=== PATIENT | male | born 1970 | race Caucasian/White ===

== ENCOUNTER 2016-10-05 08:35 | Inpatient (IN) | payer OTHER ==
[~2016-10-05] VITALS: Ht 165.1 cm; Wt 65.8 kg
--- NOTE | 2016-10-05 08:50 | NUR ---
Transporter was able to provide the telephone number of the sending facility ([phone] ), spoke with Ginger who stated the name of the facility is [facility] but was not able to provide much information about the patient. She stated pt was sent for n/v and has NKDA. She was unable to provide any history or medication information about the pt.
[2016-10-05] MEDS ORDERED: ONDANSETRON 4 MG/2 ML VIAL IV ONE (09:30)
[2016-10-05] MEDS ORDERED: IV NORMAL SALINE 1000 ML BAG IV ONE (09:30)
--- NOTE | 2016-10-05 09:41 | NUR ---
PT IS IN ROOM #2A. DR RUTH EVALUATED THE PT.
[2016-10-05 09:43] LABS: BASOPHILS # (AUTO) 0.1 K/uL (0.0-8.0); BASOPHILS % (AUTO) 0.7 % (0.0-2.0); EOSINOPHILS # (AUTO) 0.1 K/uL (0.0-0.7); EOSINOPHILS % (AUTO) 1.4 % (0.0-7.0); HEMATOCRIT 43.7 % (40-50); HEMOGLOBIN 14.1 G/DL (14.0-18.0); LYMPHOCYTES # (AUTO) 2.5 K/UL (0.8-4.8); LYMPHOCYTES % (AUTO) 31.6 % (20.5-51.5); MEAN CORPUSCULAR HEMOGLOBIN 29.7 UUG (27.0-31.0); MEAN CORPUSCULAR HGB CONC 32 g/dL (32.0-37.0); MEAN CORPUSCULAR VOLUME 92.1 FL (82.0-92.0); MONOCYTES # (AUTO) 0.4 K/UL (0.1-1.30); MONOCYTES % (AUTO) 5.5 % (0.0-11.0); NEUTROPHILS # (AUTO) 4.7 K/UL (1.8-8.9); NEUTROPHILS % (AUTO) 60.8 % (38.5-71.5); PLATELET COUNT (AUTO) 248 K/UL (150-450); RED BLOOD CELL COUNT(AUTO) 4.75 MIL/UL (4.7-6.1); WHITE BLOOD COUNT (AUTO) 7.8 K/UL (4.0-11.2)
[2016-10-05 09:55] LABS: CREATININE 1.3 mg/dL (0.6-1.3); POTASSIUM 3.8 mmol/L (3.5-5.1)
--- NOTE | 2016-10-05 10:00 | NUR ---
Ginger from sending facility arrived, pt's record updated accordingly with information provided.
[2016-10-05 10:01] LABS: BILIRUBIN,DIRECT 0.2 mg/dL (0.0-0.2); BILIRUBIN,TOTAL 0.6 mg/dL (0.2-1.0)
--- NOTE | 2016-10-05 10:10 | NUR ---
CALLED FOR PICC LINE
[2016-10-05] MEDS ORDERED: MIRT15TA7 PO (10:21)
[2016-10-05] MEDS ORDERED: BENA20TA2 PO (10:21)
[2016-10-05] MEDS ORDERED: POLY255P2 PO (10:21)
[2016-10-05] MEDS ORDERED: LEVE500T20 PO (10:21)
[2016-10-05] MEDS ORDERED: SENN-167 PO (10:21)
[2016-10-05] MEDS ORDERED: ONDA4TAB5 PO (10:21)
[2016-10-05] MEDS ORDERED: PERMETHRIN TOP (10:21)
[2016-10-05] MEDS ORDERED: DOCU100C36 PO (10:21)
[2016-10-05] MEDS ORDERED: CLOTRIMAZOLE 1% TOP (10:21)
[2016-10-05] MEDS ORDERED: DONE5TAB34 PO (10:21)
[2016-10-05] MEDS ORDERED: ACET-2154 PO (10:21)
[2016-10-05] MEDS ORDERED: SILVADENE (10:21)
[2016-10-05] MEDS ORDERED: DIPH25CA83 PO (10:21)
[2016-10-05] MEDS ORDERED: TRAM50TA2 PO (10:21)
[2016-10-05] MEDS ORDERED: ATOR80TA PO (10:21)
[2016-10-05] MEDS ORDERED: AMLO10TA2 PO (10:21)
[2016-10-05] MEDS ORDERED: ONDANSETRON 4 MG/2 ML VIAL ONE (11:36)
[2016-10-05] MEDS ORDERED: DOXYCYCLINE HYCLATE IV 200 MG in IV DEXTROSE 5% 250 ML IV ONE (11:45)
[2016-10-05] MEDS ORDERED: CEFTRIAXONE 1 G in IV DEXTROSE 5% 50 ML IV ONE (11:45)
[2016-10-05 12:03] LABS: *BLOOD, URINE NEGATIVE (NEGATIVE); *CLARITY,URINE CLOUDY (CLEAR); *COLOR,URINE DARK YELLOW (YELLOW); *KETONES,URINE TRACE (NEGATIVE); *PROTEIN,URINE 1+ (NEGATIVE); LEUKOCYTE ESTERASE ,URINE 1+ (NEGATIVE); NITRITE, URINE NEGATIVE (NEGATIVE); UGLUCOSE NEGATIVE (NEGATIVE)
[2016-10-05 12:13] LABS: *BILIRUBIN,URIN NEGATIVE (NEGATIVE)
[2016-10-05 12:21] LABS: CALCIUM OXALATE CRYSTALS,UR MODERATE /HPF (NONE SEEN)
[2016-10-05] MEDS ORDERED: DOXYCYCLINE HYCLATE 100 MG INJ IV ONE (12:21)
[2016-10-05] MEDS ORDERED: CEFTRIAXONE 1 G VIAL ONE (12:21)
[2016-10-05 12:22] LABS: RBC,URINE 0-3 /HPF (0-3)
[2016-10-05 12:23] LABS: BACTERIA,URINE MODERATE /HPF (NONE SEEN); SQUAMOUS EPITHELIAL CELL,UR FEW /HPF (NONE SEEN); WBC,URINE 80-100 /HPF (0-3)
[2016-10-05] MEDS ORDERED: ACETAMINOPHEN 325 MG TABLET PO PRN (13:15)
[2016-10-05] MEDS ORDERED: MORPHINE SULFATE 2 MG/1 ML DISP.SYRIN IV PRN (13:15)
--- NOTE | 2016-10-05 13:29 | NUR ---
REPORT WAS GIVEN TO RN M/S. PT WAS TRANSFERED TO M/S ROOM #215.
[2016-10-05] MEDS ORDERED: MAGNESIUM HYDROXIDE 30 ML LIQUID UDC PO ONE (13:30)
[2016-10-05] MEDS ORDERED: METRONIDAZOLE 500 MG/NS 100 ML PIGGYBACK IV ONE (13:45)
[2016-10-05] MEDS ORDERED: METRONIDAZOLE 500 MG/NS 100ML 100 ML IV ONE (13:58)
[2016-10-05] MEDS ORDERED: DEXTROSE 50% 50 ML DISP.SYRIN IV PRN (14:00)
[2016-10-05] MEDS ORDERED: INSULIN REGULAR, HUMAN 300 UNIT/3 ML VIAL SQ PRN (14:00)
[2016-10-05 14:30] VITALS: BP 98/92
[2016-10-05] MEDS ORDERED: MORPHINE SULFATE 4 MG/1 ML DISP.SYRIN IV PRN (14:30)
[2016-10-05] MEDS ORDERED: BISACODYL 5 MG TABLET.DR PO PRN (14:30)
[2016-10-05] MEDS: predniSONE 10 MG TABLET PO SCH (15:36)
[2016-10-05] MEDS: BLOOD SUGAR DIAGNOSTIC 1 EACH STRIP VI SCH ×2 (15:44→20:09)
[2016-10-05] MEDS: IV D5 1/2 NS 1000 ML 1,000 ML IV PRN (16:36)
--- NOTE | 2016-10-05 16:38 | NUR ---
environmental field professional's phone number is not working, the environmental field professional's phone number is [phone]. Advised the sister, sister provided the phone number of pharmacy [phone], per pharmacist "Keppra 30ml q12h", but unable to fax over the paperwork on keppra dose, pharmacist raftered to the hospice of the patient. Per hospice "will fax over". Awaiting response.
[2016-10-05] MEDS: TRAMADOL HCL 50 MG TABLET PO SCH (16:57)
--- NOTE | 2016-10-05 16:59 | NUR ---
Admitting note Patient admitted to [facility] floor, Diagnosis: UTI/ Rectal Pain, Proctitis. patient is alert and oriented to person, knows he is in a hospital, disoriented to time and situation,patient is calm and cooperative able to give some history, forgetful of other facts. patient has a history of stroke with paralysis that he suffered in [facility] Nov 2015. Patient was then assisted by family transferred back to [place]. patient with paralysis, minimal movement noted of left arm. triple lumen PICC line on right upper arm. patient has history of vascular dementia as consequence of Stroke, patient with sister at [facility] to assist with history as patient is poor historian. Sister name is Shanna Cole [phone], patient currently resides at some sort of facility with hospice following him. patient is skin is intact with some redness noted of sacrun/buttocks, and left heel, blanchable. skin otherwise is intact. patient compliant with meds at this time, Remains NPO except for meds per MD orders. questions and concerns addressed to patient and family, frequent rounding.
[2016-10-05] MEDS: DOCUSATE SODIUM 100 MG CAPSULE PO SCH (17:14)
[2016-10-05 19:00] VITALS: BP 92/58
--- NOTE | 2016-10-05 19:15 | NUR ---
pt is laying in bed comfortably. no s/s of respiratory distress noted. no pain noted. all safety needs are met.
[2016-10-05] MEDS: ATORVASTATIN 40 MG TABLET PO SCH (20:08)
[2016-10-05] MEDS: DONEPEZIL 5 MG TABLET PO SCH (20:08)
[2016-10-05] MEDS: DOXYCYCLINE HYCLATE IV 100 MG in IV DEXTROSE 5% 100 ML IV SCH (20:08)
[2016-10-05] MEDS: LEVETIRACETAM 500 MG TABLET PO SCH (20:08)
[2016-10-05] MEDS: MIRTAZAPINE 15 MG TABLET PO SCH (20:09)
[2016-10-05] MEDS: SENNOSIDES 1 TABLET PO SCH (20:09)
[2016-10-05] MEDS ORDERED: Medication Not On Formulary EA (Atorvastatin Calcium (Lipitor) 80 MG) PO SCH (21:00)
[2016-10-06 04:00] VITALS: BP 101/72
[2016-10-06] MEDS: IV D5 1/2 NS 1000 ML 1,000 ML IV PRN ×2 (04:55→17:11)
--- NOTE | 2016-10-06 06:00 | NUR ---
Patient slept well, in no acute distress. Accuchecks as ordered. IVF running, no infiltration noted. Patient kept clean/dry, repositioned Q2H for comfort. Safety measures in place, call light within reach, bed alarm on. Will continue to monitor.
--- NOTE | 2016-10-06 06:10 | NUR ---
PT'S BS LEVEL READING AT 65. PT IS ALERT, RESPONSIVE, IN NO ACUTE DISTRESS, NO N/V, NO S/S OF DIAPHORESIS. PT IS NPO, ADMINISTERED D50%. WILL REASSESS. PELT SALTER AWARE.
[2016-10-06] MEDS: PANTOPRAZOLE SODIUM 40 MG TABLET.DR PO SCH (06:25)
[2016-10-06 06:32] LABS: BASOPHILS # (AUTO) 0.1 K/uL (0.0-8.0); BASOPHILS % (AUTO) 0.8 % (0.0-2.0); EOSINOPHILS # (AUTO) 0.1 K/uL (0.0-0.7); EOSINOPHILS % (AUTO) 1.5 % (0.0-7.0); HEMATOCRIT 33.1 % (40-50); HEMOGLOBIN 10.7 G/DL (14.0-18.0); LYMPHOCYTES # (AUTO) 2.7 K/UL (0.8-4.8); LYMPHOCYTES % (AUTO) 28.3 % (20.5-51.5); MEAN CORPUSCULAR HEMOGLOBIN 29.6 UUG (27.0-31.0); MEAN CORPUSCULAR HGB CONC 32 g/dL (32.0-37.0); MEAN CORPUSCULAR VOLUME 91.2 FL (82.0-92.0); MONOCYTES # (AUTO) 0.6 K/UL (0.1-1.30); MONOCYTES % (AUTO) 6.6 % (0.0-11.0); NEUTROPHILS # (AUTO) 5.9 K/UL (1.8-8.9); NEUTROPHILS % (AUTO) 62.8 % (38.5-71.5); PLATELET COUNT (AUTO) 188 K/UL (150-450); RED BLOOD CELL COUNT(AUTO) 3.63 MIL/UL (4.7-6.1); WHITE BLOOD COUNT (AUTO) 9.4 K/UL (4.0-11.2)
[2016-10-06 06:51] LABS: BILIRUBIN,TOTAL 0.4 mg/dL (0.2-1.0); CREATININE 0.9 mg/dL (0.6-1.3); MAGNESIUM 1.7 mg/dL (1.8-2.4); PHOSPHOROUS 2.6 mg/dL (2.5-4.9); POTASSIUM 3.4 mmol/L (3.5-5.1); TOTAL PROTEIN, SERUM 5.8 g/dL (6.4-8.2)
[2016-10-06] MEDS: BLOOD SUGAR DIAGNOSTIC 1 EACH STRIP VI SCH ×2 (06:56→17:34)
[2016-10-06 07:05] LABS: THYROID STIMULATING HORMONE 0.448 mIU/mL (0.358-3.740)
[2016-10-06] MEDS: TRAMADOL HCL 50 MG TABLET PO SCH ×2 (08:06→16:07)
[2016-10-06] MEDS: MIRALAX 17 GM POWD.PACK PO SCH (08:47)
[2016-10-06] MEDS: DOCUSATE SODIUM 100 MG CAPSULE PO SCH ×2 (08:47→17:11)
[2016-10-06] MEDS: LEVETIRACETAM 500 MG TABLET PO SCH ×2 (08:47→20:23)
[2016-10-06] MEDS: predniSONE 10 MG TABLET PO SCH (08:47)
[2016-10-06] MEDS ORDERED: PANTOPRAZOLE SODIUM 40 MG TABLET.DR PO SCH (09:00)
[2016-10-06] MEDS: DOXYCYCLINE HYCLATE IV 100 MG in IV DEXTROSE 5% 100 ML IV SCH ×2 (09:01→20:25)
[2016-10-06 09:44] LABS: IRON, SERUM 89 ug/dL (50-175)
[2016-10-06] MEDS ORDERED: POTASSIUM CHLORIDE 20 MEQ TAB.PRT.SR PO ONE (10:15)
[2016-10-06] MEDS ORDERED: MAGNESIUM SULFATE/D5W 100 ML IV SCH (10:15)
[2016-10-06] MEDS ORDERED: LACTULOSE 20 G/30 ML LIQUID UDC PO ONE (10:30)
[2016-10-06] MEDS: CEFTRIAXONE 1 G in IV DEXTROSE 5% 50 ML IV SCH (11:16)
[2016-10-06 11:55] VITALS: BP 108/69
[2016-10-06 15:44] VITALS: BP 104/82
[2016-10-06 19:00] VITALS: BP 114/80
--- NOTE | 2016-10-06 19:30 | NUR ---
NO CHANGES NOTED. ALL SAFETY NEEDS ARE MET.
[2016-10-06] MEDS: ATORVASTATIN 40 MG TABLET PO SCH (20:23)
[2016-10-06] MEDS: MIRTAZAPINE 15 MG TABLET PO SCH (20:23)
[2016-10-06] MEDS: SENNOSIDES 1 TABLET PO SCH (20:23)
[2016-10-06] MEDS: DONEPEZIL 5 MG TABLET PO SCH (20:23)
[2016-10-07] VITALS: BP 120/65
[2016-10-07 04:12] VITALS: BP 102/74
[2016-10-07] MEDS: IV D5 1/2 NS 1000 ML 1,000 ML IV PRN ×2 (05:34→16:04)
--- NOTE | 2016-10-07 06:00 | NUR ---
PT SLEPT WELL, IN NO ACUTE DISTRESS, KEPT CLEAN AND DRY, REPOSITIONED Q2H FOR COMFORT. IVF RUNNING, NO INFILTRATION NOTED. CALL LIGHT WITHIN REACH, BED ALARM ON, WILL CONTINUE TO MONITOR. Addendum: 10/07/16 at 0637 by NASH WALKER RN PT IS ON TELE - SINUS WADE, PT IS RESPONSIVE, NO C/O OF CHEST PAIN, NO SOB, NO ACUTE DISTRESS.
[2016-10-07] MEDS: PANTOPRAZOLE SODIUM 40 MG TABLET.DR PO SCH (06:25)
[2016-10-07 07:41] LABS: BASOPHILS % (AUTO) 0.5 % (0.0-2.0); EOSINOPHILS # (AUTO) 0.2 K/uL (0.0-0.7); EOSINOPHILS % (AUTO) 2.6 % (0.0-7.0); HEMATOCRIT 32.2 % (40-50); LYMPHOCYTES # (AUTO) 2.9 K/UL (0.8-4.8); LYMPHOCYTES % (AUTO) 33.2 % (20.5-51.5); MEAN CORPUSCULAR HEMOGLOBIN 31.1 UUG (27.0-31.0); MEAN CORPUSCULAR HGB CONC 34 g/dL (32.0-37.0); MEAN CORPUSCULAR VOLUME 91.3 FL (82.0-92.0); MONOCYTES # (AUTO) 0.5 K/UL (0.1-1.30); MONOCYTES % (AUTO) 5.4 % (0.0-11.0); NEUTROPHILS % (AUTO) 58.3 % (38.5-71.5); PLATELET COUNT (AUTO) 208 K/UL (150-450); RED BLOOD CELL COUNT(AUTO) 3.53 MIL/UL (4.7-6.1); WHITE BLOOD COUNT (AUTO) 8.6 K/UL (4.0-11.2)
[2016-10-07] MEDS: BLOOD SUGAR DIAGNOSTIC 1 EACH STRIP VI SCH ×2 (07:49→17:22)
[2016-10-07 07:53] LABS: BILIRUBIN,TOTAL 0.2 mg/dL (0.2-1.0); CREATININE 0.8 mg/dL (0.6-1.3); MAGNESIUM 1.6 mg/dL (1.8-2.4); PHOSPHOROUS 1.9 mg/dL (2.5-4.9); POTASSIUM 3.3 mmol/L (3.5-5.1); TOTAL PROTEIN, SERUM 5.1 g/dL (6.4-8.2)
--- NOTE | 2016-10-07 08:00 | NUR ---
AWAKE ALERT COOPERATE WELL NO PAIN OR SOB ON ASPIRATION AND FALL PRECAUTION BED ALARM ON AND CALL LIGHT WITHIN REACH AND INSTRUCTION TO CALL WHEN NEED
[2016-10-07] MEDS: DOCUSATE SODIUM 100 MG CAPSULE PO SCH ×2 (09:39→16:56)
[2016-10-07] MEDS: DOXYCYCLINE HYCLATE 100 MG TABLET PO SCH ×2 (09:40→20:14)
[2016-10-07] MEDS: TRAMADOL HCL 50 MG TABLET PO SCH ×2 (09:43→17:22)
[2016-10-07] MEDS: predniSONE 10 MG TABLET PO SCH (09:43)
[2016-10-07] MEDS: MIRALAX 17 GM POWD.PACK PO SCH (09:44)
[2016-10-07] MEDS: LEVETIRACETAM 500 MG TABLET PO SCH ×2 (09:44→20:13)
[2016-10-07] MEDS ORDERED: NEUTRA PHOS PACKET PO ONE (10:00)
[2016-10-07] MEDS ORDERED: MAGNESIUM OXIDE 400 MG TABLET PO ONE (10:00)
[2016-10-07 11:09] VITALS: BP 106/76
[2016-10-07] MEDS: CEFTRIAXONE 1 G in IV DEXTROSE 5% 50 ML IV SCH (11:58)
[2016-10-07] MEDS ORDERED: POTASSIUM CHLORIDE 20 MEQ TAB.PRT.SR PO ONE (13:30)
[2016-10-07 15:06] VITALS: BP 108/79
[2016-10-07] MEDS ORDERED: MINERAL OIL FLEET ENEMA 133 ML BOTTLE RC ONE (16:45)
[2016-10-07 17:00] LABS: *GC NAA Negative (Negative); *TRIC.VAG. NAA Negative (Negative)
--- NOTE | 2016-10-07 17:00 | NUR ---
DR VALDES SEE PATIENT AND ORDER TO GIVE FLEET EMULSION TODAY SEAN
--- NOTE | 2016-10-07 17:30 | NUR ---
SAME CONDITION PAIN UNDER CONTROL NO ACUTE DISTRESS SAFETY MEASURE PROVIDED CALL LEWIS IN REACH
[2016-10-07 19:00] VITALS: BP 110/79
[2016-10-07] MEDS: ATORVASTATIN 40 MG TABLET PO SCH (20:13)
[2016-10-07] MEDS: MIRTAZAPINE 15 MG TABLET PO SCH (20:13)
[2016-10-07] MEDS: SENNOSIDES 1 TABLET PO SCH (20:14)
[2016-10-07] MEDS: DONEPEZIL 5 MG TABLET PO SCH (20:14)
[2016-10-08] MEDS: IV D5 1/2 NS 1000 ML 1,000 ML IV PRN ×3 (01:53→23:16)
[2016-10-08 04:00] VITALS: BP 111/75
--- NOTE | 2016-10-08 05:44 | NUR ---
PT SLEPT INTERMITTENTLY, IN NO ACUTE DISTRESS, NO C/O OF CHEST PAIN, SOB, NAUSEA/VOMITING. IVF INFUSING, NO S/S OF INFILTRATION. REPOSITIONED Q2H FOR COMFORT. PATIENT KEPT CLEAN/DRY/WARM. CALL LIGHT WITHIN REACH, BED ALARM ON. WILL CONTINUE TO MONITOR.
[2016-10-08] MEDS: Z GUARD REMEDY PASTE 57 GM TUBE TOP PRN ×2 (06:18→09:20)
[2016-10-08] MEDS: PANTOPRAZOLE SODIUM 40 MG TABLET.DR PO SCH (06:18)
--- NOTE | 2016-10-08 06:30 | NUR ---
PICC LINE DRESSING CHANGE DONE, TRIPLE LUMEN VALVES REPLACED/CHANGED PER PROTOCOL USING ASEPTIC TECHNIQUE. PICC LINE SITE INTACT, NO S/S OF REDNESS, BLEEDING, DRAINAGE, SWELLING. PATIENT TOLERATED PROCEDURE WELL, NO C/O OF DISCOMFORT, IN NO ACUTE DISTRESS. WILL CONTINUE TO MONITOR.
[2016-10-08 07:19] LABS: BASOPHILS % (AUTO) 0.5 % (0.0-2.0); EOSINOPHILS # (AUTO) 0.2 K/uL (0.0-0.7); EOSINOPHILS % (AUTO) 2.7 % (0.0-7.0); HEMATOCRIT 32.6 % (40-50); LYMPHOCYTES # (AUTO) 2.8 K/UL (0.8-4.8); LYMPHOCYTES % (AUTO) 32.8 % (20.5-51.5); MEAN CORPUSCULAR HEMOGLOBIN 30.8 UUG (27.0-31.0); MEAN CORPUSCULAR HGB CONC 34 g/dL (32.0-37.0); MEAN CORPUSCULAR VOLUME 91.1 FL (82.0-92.0); MONOCYTES # (AUTO) 0.5 K/UL (0.1-1.30); MONOCYTES % (AUTO) 5.8 % (0.0-11.0); NEUTROPHILS # (AUTO) 4.9 K/UL (1.8-8.9); NEUTROPHILS % (AUTO) 58.2 % (38.5-71.5); PLATELET COUNT (AUTO) 192 K/UL (150-450); RED BLOOD CELL COUNT(AUTO) 3.58 MIL/UL (4.7-6.1); WHITE BLOOD COUNT (AUTO) 8.4 K/UL (4.0-11.2)
[2016-10-08 07:56] LABS: BILIRUBIN,TOTAL 0.1 mg/dL (0.2-1.0); CREATININE 0.7 mg/dL (0.6-1.3); MAGNESIUM 1.6 mg/dL (1.8-2.4); PHOSPHOROUS 2.5 mg/dL (2.5-4.9); POTASSIUM 4.1 mmol/L (3.5-5.1); TOTAL PROTEIN, SERUM 5.1 g/dL (6.4-8.2)
--- NOTE | 2016-10-08 08:00 | NUR ---
AWAKE COOPERATE WELL NO SOB OR PAIN ON FALL /ASPIRATION PRECAUTION BED ALAERM ON AND CALL LEWIS IN REACH
[2016-10-08] MEDS: MIRALAX 17 GM POWD.PACK PO SCH (09:18)
[2016-10-08] MEDS: DOCUSATE SODIUM 100 MG CAPSULE PO SCH ×2 (09:18→17:04)
[2016-10-08] MEDS: predniSONE 10 MG TABLET PO SCH (09:18)
[2016-10-08] MEDS: LEVETIRACETAM 500 MG TABLET PO SCH ×2 (09:19→20:10)
[2016-10-08] MEDS: DOXYCYCLINE HYCLATE 100 MG TABLET PO SCH ×2 (09:19→20:10)
[2016-10-08] MEDS: SENNOSIDES 1 TABLET PO SCH ×2 (09:19→20:10)
[2016-10-08] MEDS: TRAMADOL HCL 50 MG TABLET PO SCH ×2 (09:19→17:05)
[2016-10-08] MEDS: BLOOD SUGAR DIAGNOSTIC 1 EACH STRIP VI SCH ×2 (09:24→17:40)
[2016-10-08] MEDS ORDERED: MAGNESIUM OXIDE 400 MG TABLET PO ONE (09:30)
--- NOTE | 2016-10-08 11:00 | NUR ---
LUPIS SEE PATIENT AND PT CONDITION NO BM INFORM NEW ORDER IN CHART
[2016-10-08 11:35] VITALS: BP 138/93
[2016-10-08] MEDS: CEFTRIAXONE 1 G in IV DEXTROSE 5% 50 ML IV SCH (12:14)
[2016-10-08] MEDS ORDERED: MAGNESIUM CITRATE 296 ML BOTTLE PO ONE (12:45)
--- NOTE | 2016-10-08 14:35 | NUR ---
MED PO FOR LAXATIVE GIVEN ORDER REPOSITION Q2 HR AND DIAPER CHANGE
[2016-10-08 15:41] VITALS: BP 113/87
--- NOTE | 2016-10-08 17:00 | NUR ---
STABLE HEMODYNAMIC PAIN UNDER CONTROL SAFETY MEASURE PROVIDED BED ALARM ON AND CALL LIGHT IN REACH NO ACUTE DISTRESS NO BM YET WILL ENC TO DRINK MORE PO FLD AND FINISHED MEDICATION
[2016-10-08] MEDS: MAGNESIUM HYDROXIDE 30 ML LIQUID UDC PO PRN ×2 (17:05→22:32)
--- NOTE | 2016-10-08 18:00 | NUR ---
REPOSITION X A ND CHECK BM DISIMPACT BUT IT STILL TOO HIGH ONLY ABLE TO GET SMALL BM SENT TO LAB ORDER
[2016-10-08 20:00] VITALS: BP 120/87
[2016-10-08] MEDS: DONEPEZIL 5 MG TABLET PO SCH (20:09)
[2016-10-08] MEDS: MIRTAZAPINE 15 MG TABLET PO SCH (20:09)
[2016-10-08] MEDS: ATORVASTATIN 40 MG TABLET PO SCH (20:10)
[2016-10-09 04:49] VITALS: BP 146/100
[2016-10-09] MEDS: PANTOPRAZOLE SODIUM 40 MG TABLET.DR PO SCH (06:30)
--- NOTE | 2016-10-09 06:46 | NUR ---
PT IN BED, RESTING COMFORTABLY. RESP IS EVEN AN UNLABORED. NO SOB. NO ACUTE DISTRESS. IV FLUIDS INFUSING WELL. PICC LINE IS PATENT AND INTACT. PT WITH SMALL BM X1. NO C/O PAIN OR DISCOMFORT AT THIS TIME. CALL LIGHT KEPT WITHIN REACH. WILL CONT TO MONITOR.
[2016-10-09 07:07] LABS: CREATININE 0.7 mg/dL (0.6-1.3); MAGNESIUM 1.8 mg/dL (1.8-2.4); PHOSPHOROUS 2.7 mg/dL (2.5-4.9); POTASSIUM 3.5 mmol/L (3.5-5.1)
[2016-10-09 07:30] LABS: BASOPHILS % (AUTO) 0.4 % (0.0-2.0); EOSINOPHILS # (AUTO) 0.3 K/uL (0.0-0.7); EOSINOPHILS % (AUTO) 3.2 % (0.0-7.0); LYMPHOCYTES # (AUTO) 3.5 K/UL (0.8-4.8); LYMPHOCYTES % (AUTO) 34.6 % (20.5-51.5); MEAN CORPUSCULAR HEMOGLOBIN 30.5 UUG (27.0-31.0); MEAN CORPUSCULAR HGB CONC 33 g/dL (32.0-37.0); MEAN CORPUSCULAR VOLUME 91.8 FL (82.0-92.0); MONOCYTES # (AUTO) 0.7 K/UL (0.1-1.30); MONOCYTES % (AUTO) 7.3 % (0.0-11.0); NEUTROPHILS # (AUTO) 5.7 K/UL (1.8-8.9); NEUTROPHILS % (AUTO) 54.5 % (38.5-71.5); PLATELET COUNT (AUTO) 222 K/UL (150-450); WHITE BLOOD COUNT (AUTO) 10.2 K/UL (4.0-11.2)
[2016-10-09 07:38] LABS: HEMATOCRIT 39.4 % (40-50); HEMOGLOBIN 13.1 G/DL (14.0-18.0)
[2016-10-09] MEDS: DOCUSATE SODIUM 100 MG CAPSULE PO SCH ×2 (08:24→17:15)
[2016-10-09] MEDS: DOXYCYCLINE HYCLATE 100 MG TABLET PO SCH (08:24)
[2016-10-09] MEDS: LEVETIRACETAM 500 MG TABLET PO SCH ×2 (08:24→20:43)
[2016-10-09] MEDS: TRAMADOL HCL 50 MG TABLET PO SCH ×2 (08:25→17:15)
[2016-10-09] MEDS: predniSONE 10 MG TABLET PO SCH (08:25)
[2016-10-09] MEDS: MIRALAX 17 GM POWD.PACK PO SCH (08:25)
[2016-10-09 08:29] LABS: *OCCULT BLOOD STOOL NEGATIVE (NEGATIVE)
[2016-10-09] MEDS: ONDANSETRON 4 MG/2 ML VIAL IV PRN ×2 (08:32→21:00)
--- NOTE | 2016-10-09 08:32 | NUR ---
PATIENT NOTED TO HAVE VOMITED ABOUT 50 ML YELLOWISH BILE LOOKING FLUID PATIENT MEDICATED WITH ZOFRAN ORDERED AND WILL OBSERVE.
--- NOTE | 2016-10-09 11:18 | NUR ---
RESULT RECEIVED FROM [facility] PATIENT IS POSITIVE FOR C DIFF IN THE STOOL CALLED TO LYDIA KEN WITH NEW ORDERS AND NOTED.
[2016-10-09] MEDS: IV D5 1/2 NS 1000 ML 1,000 ML IV PRN (11:39)
[2016-10-09 12:20] VITALS: BP 148/108
[2016-10-09] MEDS ORDERED: MAGNESIUM CITRATE 296 ML BOTTLE PO ONE (13:00)
[2016-10-09] MEDS: VANCOMYCIN FOR PO/GT/NG USE PO SCH ×3 (15:08→23:37)
[2016-10-09 16:42] VITALS: BP 148/98
--- NOTE | 2016-10-09 18:00 | NUR ---
REMAIN ON ISOLATION AND ORAL VANCO ORDERED.
--- NOTE | 2016-10-09 20:04 | NUR ---
pt in bed, sleeping. resp is even and unlabored. no sob, no apparent distress. pt with iv infusing well via r upper arm picc line. pt remains on isolation precautions. call light within reach will cont to monitor.
[2016-10-09] MEDS: ATORVASTATIN 10 MG TABLET PO SCH (20:43)
[2016-10-09] MEDS: SENNOSIDES 1 TABLET PO SCH (20:43)
[2016-10-09] MEDS: MIRTAZAPINE 15 MG TABLET PO SCH (20:43)
[2016-10-09] MEDS: DONEPEZIL 5 MG TABLET PO SCH (20:43)
[2016-10-09] MEDS ORDERED: Z GUARD REMEDY PASTE 57 GM TUBE TOP PRN (21:00)
[2016-10-09] MEDS ORDERED: ATORVASTATIN 40 MG TABLET PO SCH (21:00)
--- NOTE | 2016-10-09 21:05 | NUR ---
PATIENT NOTED TO HAVE VOMITED ABOUT 20ML OF CLEAR YELLOWISH/ GREENISH LOOKING FLUID. ADMINISTERED ZOFRAN ORDERED AND WILL OBSERVE.
[2016-10-09 21:30] VITALS: BP 111/88
[2016-10-09] MEDS: AMOXICILLIN-CLAVUL 500-125MG TABLET PO SCH (23:37)
[2016-10-10] MEDS: IV D5 1/2 NS 1000 ML 1,000 ML IV PRN ×2 (02:14→16:22)
[2016-10-10 05:20] VITALS: BP 127/102
[2016-10-10] MEDS: VANCOMYCIN FOR PO/GT/NG USE PO SCH (06:01)
[2016-10-10] MEDS: PANTOPRAZOLE SODIUM 40 MG TABLET.DR PO SCH (06:01)
[2016-10-10] MEDS: AMOXICILLIN-CLAVUL 500-125MG TABLET PO SCH ×3 (06:01→21:24)
--- NOTE | 2016-10-10 06:39 | NUR ---
PT IN BED, RESP EVEN AN UNLABORED. NO SOB, NO ACUTE DISTRESS. PT REPOSITIONED AND TURNED Q2 HRS. NOTED WITH SMALL BM DURING THE SHIFT. FLUIDS ENCOURAGED, PRUNE JUICE GIVEN. CONTACT PRECAUTIONS MAINTAINED FOR C-DIFF. CALL LIGHT WITH IN REACH. WILL CONT TO MONITOR.
[2016-10-10 06:49] LABS: EOSINOPHILS # (AUTO) 0.1 K/uL (0.0-0.7); HEMATOCRIT 44.7 % (40-50); LYMPHOCYTES # (AUTO) 1.7 K/UL (0.8-4.8); LYMPHOCYTES % (AUTO) 12.9 % (20.5-51.5); MEAN CORPUSCULAR HEMOGLOBIN 30.7 UUG (27.0-31.0); MEAN CORPUSCULAR HGB CONC 34 g/dL (32.0-37.0); MEAN CORPUSCULAR VOLUME 91.4 FL (82.0-92.0); MONOCYTES # (AUTO) 0.9 K/UL (0.1-1.30); MONOCYTES % (AUTO) 6.8 % (0.0-11.0); NEUTROPHILS # (AUTO) 10.7 K/UL (1.8-8.9); NEUTROPHILS % (AUTO) 79.3 % (38.5-71.5); PLATELET COUNT (AUTO) 237 K/UL (150-450); RED BLOOD CELL COUNT(AUTO) 4.89 MIL/UL (4.7-6.1); WHITE BLOOD COUNT (AUTO) 13.4 K/UL (4.0-11.2)
[2016-10-10 07:45] LABS: BILIRUBIN,TOTAL 0.3 mg/dL (0.2-1.0); CREATININE 0.8 mg/dL (0.6-1.3); MAGNESIUM 1.9 mg/dL (1.8-2.4); PHOSPHOROUS 3.3 mg/dL (2.5-4.9); POTASSIUM 3.9 mmol/L (3.5-5.1); TOTAL PROTEIN, SERUM 5.9 g/dL (6.4-8.2)
[2016-10-10] MEDS: predniSONE 10 MG TABLET PO SCH (09:00)
[2016-10-10] MEDS: TRAMADOL HCL 50 MG TABLET PO SCH ×2 (09:13→16:28)
[2016-10-10] MEDS: LEVETIRACETAM 500 MG TABLET PO SCH ×2 (09:13→20:33)
[2016-10-10] MEDS: DOCUSATE SODIUM 100 MG CAPSULE PO SCH ×2 (09:13→16:28)
[2016-10-10] MEDS: MIRALAX 17 GM POWD.PACK PO SCH (09:14)
--- NOTE | 2016-10-10 09:19 | NUR ---
UNABLE TO ADMINISTER PREDNISONE BECAUSE PATIENT REFUSED TO EAT BREAKFAT TODAY.
--- NOTE | 2016-10-10 10:00 | NUR ---
PATIENT SEEN BY THE PHYSICAL THERAPIST AND HE WAS ASSISTED UP ONTO THE COMMODE AND NOTED MEDIUM SIZED BOWEL MOVEMENT AND BACK TO BED AND WILL CONTINUE TO OBSERVE.
--- NOTE | 2016-10-10 10:56 | NUR ---
PATIENT SEEN AND EXAMINED BY DR DICKERSON INFECTIOUS DISEASE WITH NEW ORDERS AND NOTED.
[2016-10-10 12:04] VITALS: BP 138/64
--- NOTE | 2016-10-10 12:50 | NUR ---
PATIENT IS REFUSING TO EAT DESPITE ALL ASSISTANCE AND ENCOURAGEMENTS KEPT ON SAYING WILL EAT LATER.FLUID INTAKE IS OKAY AND ALSO REMAINS ON IVF ORDERED.CONTACT ISOLATION MAINTAINED FOR POSITIVE C DIFF TOXINS IN THE BLOOD MADE COMFORTABLE WITH NO DISTRESS AT THIS TIME.
[2016-10-10] MEDS: METRONIDAZOLE 500 MG TABLET PO SCH ×2 (13:12→21:24)
[2016-10-10 15:01] VITALS: BP 100/74
--- NOTE | 2016-10-10 16:30 | NUR ---
TOOK HIS MEDICATIONS SLEEPING ON AND OFF NO COMPLAINTS AT THIS TIME MAX ASSIST FOR ALL ADL MADE COMFORTABLE.
--- NOTE | 2016-10-10 18:00 | NUR ---
FAMILY AT THE BEDSIDE PATIENT IS AWAKE ALERT WITH NO C/O AT THIS TIME
[2016-10-10 20:00] VITALS: BP 125/76
[2016-10-10] MEDS: DONEPEZIL 5 MG TABLET PO SCH (20:33)
[2016-10-10] MEDS: ATORVASTATIN 10 MG TABLET PO SCH (20:33)
[2016-10-10] MEDS: SENNOSIDES 1 TABLET PO SCH (20:33)
[2016-10-10] MEDS: MIRTAZAPINE 15 MG TABLET PO SCH (20:34)
[2016-10-10] MEDS: Z GUARD REMEDY PASTE 57 GM TUBE TOP SCH (20:35)
[2016-10-11 05:44] VITALS: BP 114/84
[2016-10-11] MEDS: METRONIDAZOLE 500 MG TABLET PO SCH ×3 (05:47→21:17)
[2016-10-11] MEDS: AMOXICILLIN-CLAVUL 500-125MG TABLET PO SCH ×3 (05:47→21:17)
[2016-10-11] MEDS: PANTOPRAZOLE SODIUM 40 MG TABLET.DR PO SCH (06:01)
[2016-10-11] MEDS: IV D5 1/2 NS 1000 ML 1,000 ML IV PRN ×2 (06:47→21:17)
--- NOTE | 2016-10-11 07:08 | NUR ---
RES IN BED, RESTING COMFORTABLY. RESP IS EVEN AND UNLAORED NO SOB. NO ACUTE DISTRESS. RES HAD 2 BM. VSS. CONTACT ISOLATION MAINTAINED FOR C-DIFF. CALL LIGHT WITHIN REACH. WILL CONT TO MONITOR.
[2016-10-11] MEDS: MIRALAX 17 GM POWD.PACK PO SCH (09:00)
[2016-10-11] MEDS: Z GUARD REMEDY PASTE 57 GM TUBE TOP SCH ×2 (09:03→20:53)
[2016-10-11] MEDS: LEVETIRACETAM 500 MG TABLET PO SCH ×2 (09:03→20:52)
[2016-10-11] MEDS: TRAMADOL HCL 50 MG TABLET PO SCH ×2 (09:03→17:08)
[2016-10-11] MEDS: DOCUSATE SODIUM 100 MG CAPSULE PO SCH ×2 (09:03→17:04)
[2016-10-11] MEDS: predniSONE 10 MG TABLET PO SCH (09:03)
[2016-10-11 11:29] VITALS: BP 101/71
[2016-10-11 15:42] VITALS: BP 99/75
[2016-10-11 20:00] VITALS: BP 112/80
--- NOTE | 2016-10-11 20:45 | NUR ---
PT'S ON BED REST COMFORTABLY;HX OF CVA W/LEFT SIDE WEAKNESS.ASSISTED PT FOR PM AND SKIN CARE ON BED;REPOSITION.MEDICATION'S GIVEN TO PT DUE TIME(SEE RECORD);EDUCATED TO PT;HE VERBALIZED UNDERSTANDING AND TOLERATED WELL NOTED.SKIN CARE PER PROTOCOL.CONTINUED MONITORING TO PT.
[2016-10-11] MEDS: DONEPEZIL 5 MG TABLET PO SCH (20:52)
[2016-10-11] MEDS: SENNOSIDES 1 TABLET PO SCH (20:53)
[2016-10-11] MEDS: ATORVASTATIN 10 MG TABLET PO SCH (20:53)
[2016-10-11] MEDS: MIRTAZAPINE 15 MG TABLET PO SCH (20:53)
[2016-10-12 04:42] VITALS: BP 131/94
[2016-10-12] MEDS: AMOXICILLIN-CLAVUL 500-125MG TABLET PO SCH ×3 (05:18→21:00)
[2016-10-12] MEDS: METRONIDAZOLE 500 MG TABLET PO SCH (05:18)
[2016-10-12] MEDS: PANTOPRAZOLE SODIUM 40 MG TABLET.DR PO SCH (06:24)
--- NOTE | 2016-10-12 06:25 | NUR ---
ASSISTED FOR AM;SKIN CARE ON BED,PT'S COOPERATIVE W/ASSISTANCE;STILL FORGETFUL AND STATED THAT"I THINK I'M AT MY APARTMENT";REORIENTATION TO PT.NO DISTRESS NOTED IN THE SHIFT,NO BM WAS SEEN NOTED.
[2016-10-12 06:31] LABS: BASOPHILS # (AUTO) 0.1 K/uL (0.0-8.0); BASOPHILS % (AUTO) 0.6 % (0.0-2.0); EOSINOPHILS # (AUTO) 0.2 K/uL (0.0-0.7); EOSINOPHILS % (AUTO) 2.3 % (0.0-7.0); HEMATOCRIT 36.2 % (40-50); HEMOGLOBIN 12.3 G/DL (14.0-18.0); LYMPHOCYTES # (AUTO) 4.2 K/UL (0.8-4.8); LYMPHOCYTES % (AUTO) 44.4 % (20.5-51.5); MEAN CORPUSCULAR HEMOGLOBIN 31.2 UUG (27.0-31.0); MEAN CORPUSCULAR HGB CONC 34 g/dL (32.0-37.0); MEAN CORPUSCULAR VOLUME 91.8 FL (82.0-92.0); MONOCYTES # (AUTO) 0.8 K/UL (0.1-1.30); MONOCYTES % (AUTO) 8.6 % (0.0-11.0); NEUTROPHILS # (AUTO) 4.1 K/UL (1.8-8.9); NEUTROPHILS % (AUTO) 44.1 % (38.5-71.5); PLATELET COUNT (AUTO) 201 K/UL (150-450); RED BLOOD CELL COUNT(AUTO) 3.95 MIL/UL (4.7-6.1); WHITE BLOOD COUNT (AUTO) 9.4 K/UL (4.0-11.2)
[2016-10-12 06:56] LABS: CREATININE 0.7 mg/dL (0.6-1.3); POTASSIUM 4.1 mmol/L (3.5-5.1)
[2016-10-12] MEDS: LEVETIRACETAM 500 MG TABLET PO SCH ×2 (08:32→20:54)
[2016-10-12] MEDS: DOCUSATE SODIUM 100 MG CAPSULE PO SCH ×2 (08:32→17:12)
[2016-10-12] MEDS: predniSONE 10 MG TABLET PO SCH (08:32)
[2016-10-12] MEDS: MIRALAX 17 GM POWD.PACK PO SCH (08:33)
[2016-10-12] MEDS: Z GUARD REMEDY PASTE 57 GM TUBE TOP SCH ×2 (08:33→20:55)
[2016-10-12] MEDS: TRAMADOL HCL 50 MG TABLET PO SCH ×2 (08:33→17:13)
[2016-10-12 10:25] LABS: BAND % (MANUAL) 4 % (0-10); EOSINOPHILS % (MANUAL) 1 % (0-8); LYMPHOCYTES % (MANUAL) 47 % (20-40); MONOCYTES % (MANUAL) 7 % (2-10); NEUTROPHILS % (MANUAL) 41 % (42-75)
[2016-10-12 11:14] VITALS: BP 112/70
[2016-10-12 15:18] VITALS: BP 103/72
[2016-10-12] MEDS: VANCOMYCIN FOR PO/GT/NG USE PO SCH (17:34)
[2016-10-12 20:21] VITALS: BP 110/66
[2016-10-12] MEDS: DONEPEZIL 5 MG TABLET PO SCH (20:54)
[2016-10-12] MEDS: SENNOSIDES 1 TABLET PO SCH (20:54)
[2016-10-12] MEDS: MIRTAZAPINE 15 MG TABLET PO SCH (20:54)
[2016-10-12] MEDS: ATORVASTATIN 10 MG TABLET PO SCH (20:54)
[2016-10-13] MEDS: VANCOMYCIN FOR PO/GT/NG USE PO SCH ×5 (00:43→23:35)
[2016-10-13] MEDS: IV D5 1/2 NS 1000 ML 1,000 ML IV PRN (01:54)
[2016-10-13 04:38] VITALS: BP 119/82
--- NOTE | 2016-10-13 06:11 | NUR ---
PT SLEPT INTERMITTENTLY, NO ACUTE DISTRESS. IVF RUNNING, NO INFILTRATION NOTED. PICC LINE INTACT/PATENT, NO REDNESS/SWELLING. PT KEPT CLEAN/DRY, REPOSITIONED Q2H FOR COMFORT. CALL LIGHT WITHIN REACH, BED ALARM ON, WILL CONTINUE TO MONITOR.
[2016-10-13] MEDS: AMOXICILLIN-CLAVUL 500-125MG TABLET PO SCH ×3 (06:16→20:57)
[2016-10-13] MEDS: PANTOPRAZOLE SODIUM 40 MG TABLET.DR PO SCH (06:16)
[2016-10-13] MEDS: predniSONE 10 MG TABLET PO SCH (08:56)
[2016-10-13] MEDS: LEVETIRACETAM 500 MG TABLET PO SCH ×2 (08:57→20:52)
[2016-10-13] MEDS: MIRALAX 17 GM POWD.PACK PO SCH (08:57)
[2016-10-13] MEDS: DOCUSATE SODIUM 100 MG CAPSULE PO SCH ×2 (08:57→15:58)
[2016-10-13] MEDS: Z GUARD REMEDY PASTE 57 GM TUBE TOP SCH ×2 (09:03→20:53)
[2016-10-13] MEDS: TRAMADOL HCL 50 MG TABLET PO SCH ×2 (09:03→15:58)
[2016-10-13 11:44] VITALS: BP 96/71
[2016-10-13 13:10] LABS: HEPATITIS A AB, TOTAL Negative (Negative); HEPATITIS B SURFACE AB Non Reactive (.)
[2016-10-13 16:01] VITALS: BP 98/72
[2016-10-13 19:00] VITALS: BP 119/81
--- NOTE | 2016-10-13 19:35 | NUR ---
PT RECEIVED IN BED, AWAKE. A/OX2. TUVALUAN SPEAKING, ABLE TO MAKE NEEDS KNOWN. V/S STABLE. NO ACUTE DISTRESS NOTED. NO COMPLAINTS OF PAIN AT THIS TIME. IVF INFUSING. CONTACT PRECAUTIONS IN PLACE. SAFETY MEASURES IMPLEMENTED. CALL LIGHT WITHIN REACH. WILL CONTINUE TO MONITOR.
[2016-10-13] MEDS: ATORVASTATIN 10 MG TABLET PO SCH (20:52)
[2016-10-13] MEDS: DONEPEZIL 5 MG TABLET PO SCH (20:53)
[2016-10-13] MEDS: SENNOSIDES 1 TABLET PO SCH (20:53)
[2016-10-13] MEDS: MIRTAZAPINE 15 MG TABLET PO SCH (20:53)
--- NOTE | 2016-10-14 05:55 | NUR ---
END OF SHIFT NOTES. PT SLEPT INTERMITTENTLY THROUGHOUT SHIFT. V/S STABLE. NO ACUTE DISTRESS NOTED. NO COMPLAINTS OF PAIN. IVF INFUSING. ISOLATION MAINTAINED. SAFETY MAINTAINED. CALL LIGHT WITHIN REACH.
[2016-10-14 06:23] VITALS: BP 111/84
[2016-10-14] MEDS: AMOXICILLIN-CLAVUL 500-125MG TABLET PO SCH ×3 (06:44→21:02)
[2016-10-14] MEDS: VANCOMYCIN FOR PO/GT/NG USE PO SCH ×3 (06:44→18:24)
[2016-10-14] MEDS: PANTOPRAZOLE SODIUM 40 MG TABLET.DR PO SCH (06:44)
[2016-10-14 06:48] LABS: CREATININE 0.7 mg/dL (0.6-1.3); POTASSIUM 3.7 mmol/L (3.5-5.1)
[2016-10-14 07:05] LABS: BASOPHILS # (AUTO) 0.1 K/uL (0.0-8.0); BASOPHILS % (AUTO) 0.6 % (0.0-2.0); EOSINOPHILS # (AUTO) 0.2 K/uL (0.0-0.7); EOSINOPHILS % (AUTO) 2.1 % (0.0-7.0); HEMATOCRIT 36.5 % (40-50); HEMOGLOBIN 12.1 G/DL (14.0-18.0); LYMPHOCYTES # (AUTO) 4.5 K/UL (0.8-4.8); LYMPHOCYTES % (AUTO) 47.6 % (20.5-51.5); MEAN CORPUSCULAR HEMOGLOBIN 30.2 UUG (27.0-31.0); MEAN CORPUSCULAR HGB CONC 33 g/dL (32.0-37.0); MEAN CORPUSCULAR VOLUME 91.2 FL (82.0-92.0); MONOCYTES # (AUTO) 0.7 K/UL (0.1-1.30); MONOCYTES % (AUTO) 7.6 % (0.0-11.0); NEUTROPHILS # (AUTO) 4.1 K/UL (1.8-8.9); NEUTROPHILS % (AUTO) 42.1 % (38.5-71.5); PLATELET COUNT (AUTO) 211 K/UL (150-450); WHITE BLOOD COUNT (AUTO) 9.6 K/UL (4.0-11.2)
[2016-10-14] MEDS: LEVETIRACETAM 500 MG TABLET PO SCH ×2 (09:44→20:34)
[2016-10-14] MEDS: TRAMADOL HCL 50 MG TABLET PO SCH ×2 (09:46→17:21)
[2016-10-14] MEDS: DOCUSATE SODIUM 100 MG CAPSULE PO SCH ×2 (09:46→17:21)
[2016-10-14] MEDS: predniSONE 10 MG TABLET PO SCH (09:46)
[2016-10-14] MEDS: MIRALAX 17 GM POWD.PACK PO SCH (09:47)
[2016-10-14] MEDS: Z GUARD REMEDY PASTE 57 GM TUBE TOP SCH ×2 (09:48→20:37)
--- NOTE | 2016-10-14 11:07 | NUR ---
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 Currently awaiting the fax.
[2016-10-14 11:54] VITALS: BP 126/87
[2016-10-14 16:07] VITALS: BP 124/81
--- NOTE | 2016-10-14 19:15 | NUR ---
RECEIVED PATIENT IN BED NO SOB NO CHEST PAIN NOTED, NO COMPLAIN OF PAIN AT THIS TIME, CONT ON ISOLATION PRECAUTION FOR CDIFF, NO EPISODES OF DIARRHEA NOTED AT THIS TIME, CALL LIGHT WITHIN REACH.
[2016-10-14 19:44] VITALS: BP 100/71
[2016-10-14] MEDS: DONEPEZIL 5 MG TABLET PO SCH (20:34)
[2016-10-14] MEDS: ATORVASTATIN 10 MG TABLET PO SCH (20:34)
[2016-10-14] MEDS: MIRTAZAPINE 15 MG TABLET PO SCH (20:34)
[2016-10-14] MEDS: SENNOSIDES 1 TABLET PO SCH (20:36)
[2016-10-15] MEDS: VANCOMYCIN FOR PO/GT/NG USE PO SCH ×3 (00:13→12:24)
[2016-10-15] MEDS: IV D5 1/2 NS 1000 ML 1,000 ML IV PRN (00:14)
[2016-10-15 04:11] LABS: HEPATITIS Be ANTIGEN Negative (Negative)
[2016-10-15 05:15] VITALS: BP 142/87
[2016-10-15 06:21] LABS: BASOPHILS # (AUTO) 0.1 K/uL (0.0-8.0); BASOPHILS % (AUTO) 0.9 % (0.0-2.0); EOSINOPHILS # (AUTO) 0.2 K/uL (0.0-0.7); EOSINOPHILS % (AUTO) 1.9 % (0.0-7.0); HEMATOCRIT 35.3 % (40-50); HEMOGLOBIN 11.8 G/DL (14.0-18.0); LYMPHOCYTES # (AUTO) 4.4 K/UL (0.8-4.8); LYMPHOCYTES % (AUTO) 39.1 % (20.5-51.5); MEAN CORPUSCULAR HEMOGLOBIN 30.5 UUG (27.0-31.0); MEAN CORPUSCULAR HGB CONC 34 g/dL (32.0-37.0); MEAN CORPUSCULAR VOLUME 91.1 FL (82.0-92.0); MONOCYTES # (AUTO) 0.6 K/UL (0.1-1.30); MONOCYTES % (AUTO) 5.7 % (0.0-11.0); NEUTROPHILS % (AUTO) 52.4 % (38.5-71.5); PLATELET COUNT (AUTO) 217 K/UL (150-450); RED BLOOD CELL COUNT(AUTO) 3.87 MIL/UL (4.7-6.1); WHITE BLOOD COUNT (AUTO) 11.3 K/UL (4.0-11.2)
[2016-10-15 06:26] LABS: CREATININE 0.7 mg/dL (0.6-1.3); POTASSIUM 3.6 mmol/L (3.5-5.1)
[2016-10-15] MEDS: AMOXICILLIN-CLAVUL 500-125MG TABLET PO SCH (06:30)
[2016-10-15] MEDS: PANTOPRAZOLE SODIUM 40 MG TABLET.DR PO SCH (06:31)
--- NOTE | 2016-10-15 06:49 | NUR ---
PATIENT SLEPT MOST OF THE NIGHT, NO SOB NO CHEST PAIN, NO COMPLAIN OF PAIN, TURN AND REPOSITION, KEPT CLEAN AND DRY. NO S/S OF DISTRESS.
--- NOTE | 2016-10-15 06:50 | NUR ---
NO EPISODES OF DIARRHEA NOTED IN THIS SHIFT.
[2016-10-15] MEDS: TRAMADOL HCL 50 MG TABLET PO SCH (08:45)
[2016-10-15] MEDS: LEVETIRACETAM 500 MG TABLET PO SCH (08:45)
[2016-10-15] MEDS: predniSONE 10 MG TABLET PO SCH (08:45)
[2016-10-15] MEDS: Z GUARD REMEDY PASTE 57 GM TUBE TOP SCH (08:47)
[2016-10-15] MEDS: DOCUSATE SODIUM 100 MG CAPSULE PO SCH (08:54)
[2016-10-15] MEDS: MIRALAX 17 GM POWD.PACK PO SCH (08:54)
[2016-10-15] MEDS ORDERED: VANC500V PO (09:38)
[2016-10-15] MEDS ORDERED: Amoxicillin-Clav 500-125MG Tab PO (09:38)
[2016-10-15] MEDS ORDERED: ATOR10TA PO (09:38)
--- NOTE | 2016-10-15 10:39 | NUR ---
SPOKE TO PATIENT'S FAMILY REGARDING PATIENT DISCHARGE REQUEST FOR 4PM, ANY SPECIFIC REASON WHY PATIENT NEED TO STAY LONGER THAN NEEDED. PATIENT'S SISTER WAS VERY ABRUPTLY AND STATED, "WHATEVER" AND HANG UP.
--- NOTE | 2016-10-15 11:00 | NUR ---
The patient will be discharged today to [facility] [ ; [address] [place] [address]] via [facility]. Spoke to his sister, Kaye Cole [ ], about the discharge and she was very thankful for finding a SNF. Reminded her to follow-up with the patient's application for Disability and Medicare coverage and she stated she will. Also spoke to Karime from [facility] who confirmed that they will admit the patient today. His RN, Simran, is aware of his discharge plan and will call the facility for the report.
[2016-10-15 12:05] VITALS: BP 112/87
--- NOTE | 2016-10-15 12:45 | NUR ---
DISCHARGING PATIENT TO [facility] IN A STABLE CONDITION. VSS. ALERT AND ORIENTED IN NO ACUTE DISTRESS. DENIED PAIN. SBAR REPORT GIVEN TO ALLEN SOARES AT [facility]. DISCHARGE INSTRUCTIONS PROVIDED. LIST OF BELONGING SINGED AND ALL WAS TAKEN. PATIENT DISCHARGED WITH PICC LINE TO [facility] PER DR. SANDERS'S ORDERS. PICC LINE INTACT AND PATENT. PATIENT LEAVING VIA [facility]IVATE CAR ACCOMPANIED AMBULANCE STAFF.
== END 2016-10-15 12:40 | DRG 254 ==
LOC: ER 08:35 → MED 13:55 → TELE 10-06 11:51 → MED 10-07 17:05
PROVIDERS: ADMIT Internal Medicine; ATTEND Internal Medicine
PROC: 02HV33Z Insertion of Infusion Device into Superior Vena Cava, Percutaneous Approach (ICD-10-PCS; principal; 2016-10-05)
DX: K62.89 Other specified diseases of anus and rectum (principal); E43 Unspecified severe protein-calorie malnutrition; G91.9 Hydrocephalus, unspecified; E11.649 Type 2 diabetes mellitus with hypoglycemia without coma; A04.7 Enterocolitis due to Clostridium difficile; F01.50 Vascular dementia, unspecified severity, without behavioral disturbance, psychotic disturbance, mood disturbance, and anxiety; I69.354 Hemiplegia and hemiparesis following cerebral infarction affecting left non-dominant side; M87.9 Osteonecrosis, unspecified; E83.42 Hypomagnesemia; K56.41 Fecal impaction; B96.89 Other specified bacterial agents as the cause of diseases classified elsewhere; N39.0 Urinary tract infection, site not specified; B96.4 Proteus (mirabilis) (morganii) as the cause of diseases classified elsewhere; Z83.3 Family history of diabetes mellitus; Z98.2 Presence of cerebrospinal fluid drainage device; I69.319 Unspecified symptoms and signs involving cognitive functions following cerebral infarction; E86.0 Dehydration; R00.1 Bradycardia, unspecified; Z79.899 Other long term (current) drug therapy; D64.9 Anemia, unspecified; E78.00 Pure hypercholesterolemia, unspecified; Z68.24 Body mass index [BMI] 24.0-24.9, adult; M43.07 Spondylolysis, lumbosacral region; E87.6 Hypokalemia; Z16.19 Resistance to other specified beta lactam antibiotics; I70.0 Atherosclerosis of aorta; E78.5 Hyperlipidemia, unspecified; Z82.49 Family history of ischemic heart disease and other diseases of the circulatory system; Z87.891 Personal history of nicotine dependence; K40.90 Unilateral inguinal hernia, without obstruction or gangrene, not specified as recurrent; N20.0 Calculus of kidney; Z86.69 Personal history of other diseases of the nervous system and sense organs; M25.561 Pain in right knee
CPT/HCPCS: 36415; 70030-TC; 71010; 83550; 83690; 83735; 84100; 84443; 85025; 86140; 86625; 86705; 86706; 86708; 86803; 87040; 87046; 87077; 87086; 87177; 87350; 87491; 87806; 89055; 92610; 93005; 94640; 97110; 97161; 97165; 97530; A4663; J0696; J1815; J2405; J3370; J3475; J3490; J7030; J7042; J7050; J7060; J7512